=== PATIENT | male | born 1970 | race American Indian/Alaskan Native ===

== ENCOUNTER 2021-07-21 16:50 | Emergency (ER) | payer SELFPAY ==
[2021-07-21 18:13] VITALS: BP 136/82
--- NOTE | 2021-07-21 20:37 | Emergency Department Report ---
HPI - General Chief Complaint: Abdominal Pain Time Seen by Provider: 07/21/21 19:49 - HPI HPI: 51-year-old male with history of recent pneumonia with respiratory failure requiring placement of a trach and PEG tube who has since recovered and had his trach reversed presenting due to concern for food stuck in his PEG tube. The patient was discharged from the hospital 2 days ago in [place] and came here. He reports that he was not given instructions for what to do with the PEG since he no longer uses it for medications or for nutrition. He says he takes everything by mouth now. He has had no physical symptoms or complaints but was just simply concerned because he ate a bagel this morning and saw that there may be a piece of it and the PEG tube. He denies any associated abdominal pain or nausea/vomiting. He also denies any fever, vision change, headache, neck pain, chest pain, shortness of breath, cough, back pain, abdominal pain, new focal weakness/sensory change, or any other complaints ED Past Medical Hx - Social History Smoking Status: Unknown if ever smoked ED Review of Systems ROS: Stated complaint: PEG TUBE COMPLICATIONS Other details as noted in HPI Physical Exam - Physical Exam Vital Signs: Vital Signs 07/21/21 18:09 Temperature 98.2 F Pulse Rate 74 Respiratory 18 Rate Blood Pressure 136/82 O2 Sat by Pulse 95 Oximetry ED Course Vital Signs 07/21/21 18:09 Temperature 98.2 F Pulse Rate 74 Respiratory 18 Rate Blood Pressure 136/82 O2 Sat by Pulse 95 Oximetry Critical care attestation.: If time is entered above; I have spent that time in minutes in the direct care of this critically ill patient, excluding procedure time. ED Disposition Clinical Impression: PEG tube malfunction Disposition: 01 HOME / SELF CARE / HOMELESS Is pt being admited?: No Condition: Stable Instructions: PEG Tube Home Guide, How to Care for a Feeding Tube Additional Instructions: Please follow-up with your GI doctor to discuss removal of your PEG tube. Return to the emergency department for any significant health concerns. Referrals: MAKAYLA JAIN MD [Staff Physician] - 3-5 Days
== END 2021-07-21 21:35 | disposition home or self-care (01) ==
LOC: ED 16:50
DX: K94.23 Gastrostomy malfunction (principal)
CPT/HCPCS: 99282

== ENCOUNTER 2021-08-16 11:20 | Emergency (ER) | payer SELFPAY ==
[2021-08-16] MEDS ORDERED: MORPHINE 4 MG/1 ML INJ IV ONE ×2 (12:24→14:14)
--- NOTE | 2021-08-16 12:32 | Emergency Department Report ---
ED Abdominal Pain HPI - General Chief Complaint: Abdominal Pain Stated Complaint: STOMACH PAIN FEEDING TUBE Time Seen by Provider: 08/16/21 12:18 Source: patient Mode of arrival: Ambulatory Limitations: No Limitations - History of Present Illness Initial Comments: Patient presents with 4 days of upper abdominal pain. He describes it as aching and severe. He noticed today that he had some bloody drainage from around the G-tube. He decided to come in. There was no bloody drainage within the G-tube. He has not had blood in the stools that he noticed. He has not noticed hematuria. He has not noticed bleeding from other sites. He is not sure if the 2 are related. Patient was in the hospital about a month ago for pneumonia. He states that he was in a coma for 17 days. When he came to he had a trach and a G-tube. He is at home now. He is still weak from his recent hospitalization. He has never had problems with his stomach before. - Related Data Previous Rx's Medication Instructions Recorded Last Taken Type Dicyclomine [Bentyl] 20 mg PO QID PRN #30 tablet 08/16/21 Unknown Rx Allergies Allergy/AdvReac Type Severity Reaction Status Date / Time No Known Allergies Allergy Verified 08/16/21 12:15 ED Review of Systems ROS: Stated complaint: STOMACH PAIN FEEDING TUBE Other details as noted in HPI Comment: All other systems reviewed and negative Constitutional: fever (3 days ago) Eyes: denies: vision change ENT: denies: throat pain Respiratory: denies: cough Cardiovascular: denies: chest pain Endocrine: denies: unexplained weight loss Gastrointestinal: as per HPI Genitourinary: denies: dysuria Musculoskeletal: denies: back pain Skin: denies: rash Neurological: denies: headache Hematological/Lymphatic: denies: easy bruising ED Past Medical Hx - Past Medical History Additional medical history: per patient admitted back in Jun for walking pneumonia and poison in blood - Surgical History Past Surgical History?: Yes Additional Surgical History: has g tube - Family History Family history: no significant - Social History Smoking Status: Never Smoker - Medications Home Medications: Home Medications Medication Instructions Recorded Confirmed Last Taken Type Dicyclomine [Bentyl] 20 mg PO QID PRN #30 tablet 08/16/21 Unknown Rx ED Physical Exam - General Limitations: Physical Limitation (Generalized weakness), Other (Pulse ox noted and normal) General appearance: alert, in no apparent distress, obese - Head Head exam: Present: atraumatic, normocephalic - Eye Eye exam: Present: normal appearance, PERRL, EOMI, scleral icterus - ENT ENT exam: Present: normal orophraynx, normal external ear exam - Neck Neck exam: Present: normal inspection. Absent: meningismus - Respiratory Respiratory exam: Present: normal lung sounds bilaterally. Absent: respiratory distress - Cardiovascular Cardiovascular Exam: Present: regular rate, normal rhythm - GI/Abdominal GI/Abdominal exam: Present: soft, tenderness (Epigastric), other (G-tube in place without obvious bloody discharge). Absent: guarding, rebound - Extremities Exam Extremities exam: Present: normal capillary refill - Back Exam Back exam: Absent: CVA tenderness (R), CVA tenderness (L) - Neurological Exam Neurological exam: Present: alert, oriented X3, CN II-XII intact, normal gait. Absent: motor sensory deficit - Psychiatric Psychiatric exam: Present: normal affect, normal mood - Skin Skin exam: Present: warm, dry ED Course Vital Signs 08/16/21 08/16/21 08/16/21 12:09 12:31 12:38 Temperature 98.3 F Pulse Rate 80 69 Respiratory 16 24 13 Rate Blood Pressure 150/103 O2 Sat by Pulse 96 97 Oximetry 08/16/21 08/16/21 08/16/21 12:45 13:01 13:15 Temperature Pulse Rate 71 76 72 Respiratory 10 L 21 13 Rate Blood Pressure 155/98 144/108 144/108 O2 Sat by Pulse 99 96 98 Oximetry - Reevaluation(s) Reevaluation #1: 08/16/21 12:31 IV and labs were ordered. CT was ordered. Old records noted. Reevaluation #2: 08/16/21 13:40 CBC was noted and normal. Chemistries and CT are pending. ED Medical Decision Making - Lab Data Result diagrams: 08/16/21 12:38 - Medical Decision Making Patient present with upper abdominal pain of several days duration followed by a bloody drainage from around his G-tube. There is no obvious G-tube drainage at this time. Patient does not have distention or tympany to suggest bowel obstruction. He does not appear to be jaundiced. Labs and CT are currently pending. Critical Care Time: No Critical care attestation.: If time is entered above; I have spent that time in minutes in the direct care of this critically ill patient, excluding procedure time. ED Disposition Clinical Impression: Acute epigastric pain, Drainage from gastrostomy tube site Disposition: HOME / SELF CARE / HOMELESS Is pt being admited?: No Condition: Stable Instructions: Abdominal Pain, Adult, [id number], Pain Without a Known Cause Additional Instructions: Drink plenty of water. Return for problems. Follow-up with your surgeon for recheck and further management. Prescriptions: Dicyclomine [Bentyl] 20 mg PO QID PRN #30 tablet PRN Reason: abdominal pain Referrals: NAREN TROTTER MD [Primary Care Provider] - 3-5 Days MADDISON OLMSTEAD DO [Staff Physician] - 3-5 Days
[2021-08-16 13:29] LABS: Basophils # (Auto) 0.1 K/mm3 (0.0-0.1); Basophils % (Auto) 0.8 % (0.0-1.8); Eosinophils # (Auto) 0.1 K/mm3 (0.0-0.4); Eosinophils % (Auto) 1.8 % (0.0-4.3); Hematocrit 42.2 % (35.5-45.6); Hemoglobin 14.5 gm/dl (11.8-15.2); Lymphocytes % (Auto) 28.9 % (13.4-35.0); Mean Corpuscular HGB Conc 34 % (32-34); Mean Corpuscular Volume 82 fl (84-94); Monocytes # (Auto) 0.7 K/mm3 (0.0-0.8); Monocytes % (Auto) 9.9 % (0.0-7.3); Platelet Count 330 K/mm3 (140-440); Red Blood Count 5.18 M/mm3 (3.65-5.03); Red Cell Distribution Width 16.7 % (13.2-15.2)
[2021-08-16 14:14] LABS: Alanine Aminotransferase 121 units/L (7-56); Albumin 4.5 g/dL (3.9-5); BUN/Creatinine Ratio 13; Blood Urea Nitrogen 8 mg/dL (9-20); Calcium 9.1 mg/dL (8.4-10.2); Hemolysis Index 2
[2021-08-16] MEDS ORDERED: SODIUM CHLORIDE 0.9% 1000 ML 1,000 ML IV ONE (14:14)
--- NOTE | 2021-08-16 14:15 | Event Note ---
Date: 08/16/21 The patient is seen and examined. He reports that he was admitted to a hospital in [place], called [facility], reports being admitted for months secondary to respiratory failure, secondary to pneumonia, and "blood poisoning." He was discharged on July 18, and returned to [place], where he has lived for the past 6 years, on July 19. He has not followed up with a primary care doctor. He complains of persistent epigastric abdominal pain. Patient and fianc updated on plan of care. CT scan abdomen pelvis pending. Additional pain medication ordered. Patient and fianc updated that if no emergent findings noted on CT scan, he will need to follow-up with outpatient primary care and/or GI for outpatient follow-up CT scan negative for acute findings. Patient ambulatory with a steady gait. Vital signs stable. radiology ct technologist also administered oral compatible contrast of the feeding tube, which demonstrated no abnormality. We will discharge patient with pain medication, instructions to follow-up with outpatient primary care/GI. Return precautions reviewed The patient does report that he is feeling improved. He reports that he takes Tylenol once or twice a day, But he reports that he is taking 325, as prescribed. He denies overdose/unintentional dosing of Tylenol/acetaminophen. He did also endorse that he was occasionally taking Naprosyn, Aleve, ibuprofen. He is advised to not take this, as he reports that he is taking Xarelto for history of DVT. Vital Signs 08/16/21 08/16/21 08/16/21 12:09 12:31 12:38 Temperature 98.3 F Pulse Rate 80 69 Respiratory 16 24 13 Rate Blood Pressure 150/103 O2 Sat by Pulse 96 97 Oximetry 08/16/21 08/16/21 08/16/21 12:45 13:01 13:15 Temperature Pulse Rate 71 76 72 Respiratory 10 L 21 13 Rate Blood Pressure 155/98 144/108 144/108 O2 Sat by Pulse 99 96 98 Oximetry Lab Results 08/16/21 08/16/21 Range/Units 12:38 12:38 WBC 6.8 (4.5-11.0) K/mm3 RBC 5.18 H (3.65-5.03) M/mm3 Hgb 14.5 (11.8-15.2) gm/dl Hct 42.2 (35.5-45.6) % MCV 82 L (84-94) fl MCH 28 (28-32) pg MCHC 34 (32-34) % RDW 16.7 H (13.2-15.2) % Plt Count 330 (140-440) K/mm3 Lymph % (Auto) 28.9 (13.4-35.0) % Bartholomew % (Auto) 9.9 H (0.0-7.3) % Eos % (Auto) 1.8 (0.0-4.3) % Baso % (Auto) 0.8 (0.0-1.8) % Lymph # (Auto) 2.0 (1.2-5.4) K/mm3 Bartholomew # (Auto) 0.7 (0.0-0.8) K/mm3 Eos # (Auto) 0.1 (0.0-0.4) K/mm3 Baso # (Auto) 0.1 (0.0-0.1) K/mm3 Seg Neutrophils % 58.6 (40.0-70.0) % Seg Neutrophils # 4.0 (1.8-7.7) K/mm3 Sodium 138 (137-145) mmol/L Potassium 4.1 (3.6-5.0) mmol/L Chloride 101.3 (98-107) mmol/L Carbon Dioxide 24 (22-30) mmol/L Anion Gap 17 mmol/L BUN 8 L (9-20) mg/dL Creatinine 0.6 L (0.8-1.3) mg/dL Estimated GFR > 60 ml/min BUN/Creatinine Ratio 13 % Glucose 119 H (75-100) mg/dL Calcium 9.1 (8.4-10.2) mg/dL Total Bilirubin 0.80 (0.1-1.2) mg/dL AST 46 H (5-40) units/L ALT 121 H (7-56) units/L Alkaline Phosphatase 124 (35-129) units/L Total Protein 7.7 (6.3-8.2) g/dL Albumin 4.5 (3.9-5) g/dL Albumin/Globulin Ratio 1.4 % Lipase 50 (13-60) units/L CT ABDOMEN AND PELVIS WITH CONTRAST HISTORY: upper abd pain, bleeding from g tube. COMPARISON: None. TECHNIQUE: CT images of the abdomen and pelvis were obtained following administration of intravenous contrast. All CT scans at this location are performed using CT dose reduction for ALARA by means of automated exposure control. CONTRAST: 100 ml of intravenous contrast administered. FINDINGS: Lungs/bones: Lung bases are clear. Mild degenerative changes in the lower spine and pelvis. No acute osseous abnormality. Abdomen/pelvis: Tiny cyst seen near the dome of the liver. The liver is otherwise unremarkable. The gallbladder, spleen, pancreas, adrenals, left kidney, and proximal GI tract appear unremarkable with tiny simple cyst in the midpole the right kidney. There is also a G-tube positioned in the distal gastric body. Proximal GI tract is otherwise unremarkable. Urinary bladder is unremarkable. Prostate is normal. No pelvic free fluid or acute colonic abnormality. The appendix is normal. IMPRESSION: 1. No acute abnormality identified. Specifically there is no clear etiology for bleeding at the G-tube site on this exam. Signer Name: Flaquito Ortiz MD Signed: 08/16/2021 2:29 PM Workstation Name: [email or web address]
--- NOTE | 2021-08-16 15:34 | Cat Scan Report ---
CT ABDOMEN AND PELVIS WITH CONTRAST HISTORY: upper abd pain, bleeding from g tube. COMPARISON: None. TECHNIQUE: CT images of the abdomen and pelvis were obtained following administration of intravenous contrast. All CT scans at this location are performed using CT dose reduction for ALARA by means of automated exposure control. CONTRAST: 100 ml of intravenous contrast administered. FINDINGS: Lungs/bones: Lung bases are clear. Mild degenerative changes in the lower spine and pelvis. No acute osseous abnormality. Abdomen/pelvis: Tiny cyst seen near the dome of the liver. The liver is otherwise unremarkable. The gallbladder, spleen, pancreas, adrenals, left kidney, and proximal GI tract appear unremarkable with tiny simple cyst in the midpole the right kidney. There is also a G-tube positioned in the distal gas tric body. Proximal GI tract is otherwise unremarkable. Urinary bladder is unremarkable. Prostate is normal. No pelvic free fluid or acute colonic abnormalit y. The appendix is normal. IMPRESSION: 1. No acute abnormality identified. Specifically there is no clear etiology for bleeding at the G-tub e site on this exam. Signer Name: Flaquito Ortiz MD Signed: 08/16/2021 3:29 PM Workstation Name: [id number]
[2021-08-16 16:53] VITALS: BP 141/97
== END 2021-08-16 16:56 | disposition home or self-care (01) ==
LOC: MERGE 11:20 → ED 11:20
DX: K94.23 Gastrostomy malfunction (principal); R10.13 Epigastric pain; Z79.899 Other long term (current) drug therapy
CPT/HCPCS: 36415; 74177; 80053; 83690; 85025; 96361; 96374; 96376; 99284; J2270; J7030; Q9967; Q0162